=== PATIENT | male | born 1990 | race American Indian/Alaskan Native ===

== ENCOUNTER 2019-06-02 14:23 | Emergency (ER) | payer SELFPAY ==
[2019-06-02 14:32] VITALS: BP 136/80
--- NOTE | 2019-06-02 14:36 | Event Note ---
ED Screening Note Date of service: 06/02/19 Time: 14:31 ED Screening Note: 28 y o male presents for pain, swelling and pus drainage to right big toe This initial assessment/diagnostic orders/clinical plan/treatment(s) is/are subject to change based on patients health status, clinical progression and re- assessment by fellow clinical providers in the ED. Further treatment and workup at subsequent clinical providers discretion. Patient/guardian urged not to elope from the ED as their condition may be serious if not clinically assessed and managed. Initial orders include: I&D acc eval
--- NOTE | 2019-06-02 14:50 | Emergency Department Report ---
Abscess Boil HPI - HPI Chief Complaint: Skin/Abscess/Foreign Body Stated Complaint: BIG TOE PAIN Time Seen by Provider: 06/02/19 14:47 Duration: >1 Week Location: Other Severity: Mild History: Yes Pain, Yes Purulent Drainage, No Fever, No Numbness, No Foreign Body, No Previous History, No Insect Bite HPI: Patient is a 28-year-old -[place] male who comes to the ER with bilateral great toe pain. His toes have been hurting for over a month. He states he is been picking at the nailbeds. They are both draining. He does not need an I&D as indicated in triage. Patient is without fever, ambulatory nontoxic Home Medications: Previous Rx's Medication Instructions Recorded Last Taken Type Amoxicillin [Trimox CAP] 500 mg PO TID #30 capsule 06/02/19 Unknown Rx Allergies/Adverse Reactions: Allergies Allergy/AdvReac Type Severity Reaction Status Date / Time No Known Allergies Allergy Unverified 06/02/19 14:25 ED Review of Systems ROS: Stated complaint: BIG TOE PAIN Other details as noted in HPI Comment: All other systems reviewed and negative ED Past Medical Hx - Past Medical History Previous Medical History?: No - Surgical History Past Surgical History?: No - Social History Smoking Status: Never Smoker Substance Use Type: Alcohol - Medications Home Medications: Home Medications Medication Instructions Recorded Confirmed Last Taken Type Amoxicillin [Trimox CAP] 500 mg PO TID #30 capsule 06/02/19 Unknown Rx ED Abscess Boil Physical Exam - Exam General: Vital signs noted. No distress. Alert and acting appropriately. Exam: Yes Tenderness, Yes Normal Neurologic Exam, Yes Normal Circulation, No Fluctuance, No Surrounding Cellulites/Erythema, No Lymphangitis, No Crepitation, No Heart Murmur ED Course Vital Signs 06/02/19 14:29 Temperature 98.5 F Pulse Rate 65 Respiratory 18 Rate Blood Pressure 136/80 O2 Sat by Pulse 98 Oximetry Critical care attestation.: If time is entered above; I have spent that time in minutes in the direct care of this critically ill patient, excluding procedure time. ED Medical Decision Making - Medical Decision Making Antibiotics for chronic nailbed infection. Patient educated on nailbed care. DC home with amoxicillin 3 times daily and PCP follow-up Vital Signs 06/02/19 14:29 Temperature 98.5 F Pulse Rate 65 Respiratory 18 Rate Blood Pressure 136/80 O2 Sat by Pulse 98 Oximetry ED Disposition Clinical Impression: Nail bed infection Disposition: DC-01 TO HOME OR SELFCARE Is pt being admited?: No Does the pt Need Aspirin: No Condition: Stable Instructions: Paronychia (ED) Additional Instructions: MEDS ORDERED TODAY UNTIL GONE MOTRIN OR TYLENOL FOR PAIN FOLLOW UP WITH PCP REFERRAL BELOW SOAK FOOT IN WARM WATER WITH EPSOM SALTS SEVERAL TIMES PER DAY Prescriptions: Amoxicillin [Trimox CAP] 500 mg PO TID #30 capsule Referrals: VINICIUS SOTOMAYOR MD [Staff Physician] - 3-5 Days Time of Disposition: 14:48
== END 2019-06-02 14:59 | disposition home or self-care (01) ==
LOC: ED 14:23
DX: L08.9 Local infection of the skin and subcutaneous tissue, unspecified (principal); L03.032 Cellulitis of left toe; L03.031 Cellulitis of right toe; Z79.899 Other long term (current) drug therapy
CPT/HCPCS: 99282

== ENCOUNTER 2020-03-12 16:53 | Emergency (ER) | payer SELFPAY ==
[2020-03-12 18:31] VITALS: BP 148/86
== END 2020-03-12 19:00 ==
LOC: ED 16:53
DX: R36.9 Urethral discharge, unspecified (principal); Z53.21 Procedure and treatment not carried out due to patient leaving prior to being seen by health care provider